=== PATIENT | male | born 1980 | race Caucasian/White ===

== ENCOUNTER → 2017-06-08 | Outpatient (CLI) | payer OTHER ==
[2017-06-08 08:00] LABS: MEAN CORPUSCULAR HEMOGLOBIN 32.9 pg (27.0-33.0); MEAN CORPUSCULAR HGB CONC 36.1 g/dl (32.0-36.5); MEAN CORPUSCULAR VOLUME 91.1 fl (80.0-96.0); RED CELL DISTRIBUTION WIDTH 12.7 % (11.5-14.5); WHITE BLOOD COUNT 6.9 K/mm3 (4.0-10.0)
--- NOTE | 2017-06-08 08:48 | REP ---
PA and lateral chest: There are no comparisons. The lung sagastume are clear. The cardiac size is normal The kate, mediastinum, and bony thorax are unremarkable. Impression: Negative PA and lateral chest. Signed by Ulices Ivan MD 06/08/2017 08:40 A
[2017-06-08 08:55] LABS: ALBUMIN/GLOBULIN RATIO 1.38 (1.00-1.93); ALKALINE PHOSPHATASE 56 U/L (45-117); ALT/SGPT 76 U/L (12-78); ANION GAP 5 MEQ/L (8-16); AST/SGOT 29 U/L (15-37); BILIRUBIN,TOTAL 0.7 MG/DL (0.2-1.0); BLOOD UREA NITROGEN 9 MG/DL (7-18); CALCIUM LEVEL 8.3 MG/DL (8.5-10.1); CARBON DIOXIDE LEVEL 31 MEQ/L (21-32); CHLORIDE LEVEL 105 MEQ/L (98-107); CHOLESTEROL LEVEL 200 MG/DL (<200); GLOMERULAR FILTRATION RATE > 60.0 (>60); GLUCOSE, FASTING 77 MG/DL (70-105); POTASSIUM SERUM 4.4 MEQ/L (3.5-5.1); SODIUM LEVEL 141 MEQ/L (136-145); TOTAL PROTEIN 6.9 GM/DL (6.4-8.2); TRIGLYCERIDES LEVEL 112 MG/DL (<150)
--- NOTE | 2017-06-08 09:01 | REP ---
RIGHT KNEE SERIES, FIVE VIEWS: There is no evidence of an acute fracture, dislocation or intrinsic bone disease. The joint spaces appear unremarkable. IMPRESSION: No fracture or dislocation. Further evaluation may be made with MR if clinically indicated. Signed by Ulices Ying MD 06/08/2017 09:42 A
--- NOTE | 2017-06-08 18:57 | ECGEPIP ---
Stationary ECG Study [facility] Test Date: 2017-06-08 Pat Name: EDGAR MANDEL Department: Room: - Gender: M Interlocking Pavement Installer: RODGER : 1980 Requested By: Milagros Burgess Order Number: [id number] Reading MD: Diomedes Garcia Measurements Intervals [place] Rate: 63 P: 1 MT: 131 QRS: -26 QRSD: 85 T: 15 QT: 389 QTc: 399 Interpretive Statements Normal sinus rhythm Borderline low limb lead QRS voltage Delayed anterior R-wave progression Nonspecific repolarization abnormalities Comparison tracing not available Electronically Signed On 06-08-2017 18:57:38 EDT by Diomedes Garcia
== END ==
LOC: M LAB 07:21
PROVIDERS: ATTEND Family Medicine
DX: I10 Essential (primary) hypertension (principal)

== ENCOUNTER → 2020-08-05 | Outpatient (REF) | payer OTHER ==
[2020-08-05 13:10] LABS: BASO # 0.1 10^3/uL (0.0-0.2); BASO % 0.7 % (0.0-1.0); EOS # 0.3 10^3/uL (0.0-0.5); EOS % 3.6 % (0.0-3.0); HEMATOCRIT 50.9 % (42.0-52.0); HEMOGLOBIN 16.4 g/dl (13.5-17.5); LYMPH # 2.8 10^3/uL (1.5-5.0); LYMPH % 37.4 % (24.0-44.0); MEAN CORPUSCULAR HEMOGLOBIN 30.5 pg (27.0-33.0); MEAN CORPUSCULAR HGB CONC 32.2 g/dl (32.0-36.5); MEAN CORPUSCULAR VOLUME 94.6 fl (80.0-96.0); MONO # 0.7 10^3/uL (0.0-0.8); MONO % 9.2 % (0.0-5.0); NEUTROPHILS # 3.6 10^3/uL (1.5-8.5); NEUTROPHILS % 48.6 % (36.0-66.0); PLATELET COUNT, AUTOMATED 196 10^3/uL (150-450); RED BLOOD COUNT 5.38 10^6/uL (4.30-6.10); WHITE BLOOD COUNT 7.5 10^3/uL (4.0-10.0)
[2020-08-05 13:42] LABS: ALBUMIN 4.1 GM/DL (3.2-5.2); ALT/SGPT 53 U/L (12-78); BILIRUBIN,TOTAL 0.6 MG/DL (0.2-1.0); BLOOD UREA NITROGEN 13 MG/DL (7-18); CALCIUM LEVEL 9.4 MG/DL (8.5-10.1); CARBON DIOXIDE LEVEL 30 MEQ/L (21-32); CHLORIDE LEVEL 105 MEQ/L (98-107); CHOLESTEROL LEVEL 213 MG/DL (<200); CHOLESTEROL RISK RATIO 5.071 (<5); CREATININE FOR GFR 1.04 MG/DL (0.70-1.30); GLOMERULAR FILTRATION RATE > 60.0 (>60); GLUCOSE, FASTING 84 MG/DL (70-100); HDL CHOLESTEROL 42 MG/DL (>40); LDL CHOLESTEROL 154 MG/DL (<100); NON-HDL-C 171 MG/DL; SODIUM LEVEL 140 MEQ/L (136-145); TOTAL PROTEIN 7.3 GM/DL (6.4-8.2); TRIGLYCERIDES LEVEL 83 MG/DL (<150)
== END ==
LOC: M SFHCADAM 08:25
PROVIDERS: ATTEND Family Medicine
DX: Z00.00 Encounter for general adult medical examination without abnormal findings (principal)

== ENCOUNTER → 2020-10-03 | Outpatient (CLI) | payer OTHER ==
[~2020-10-03] MED LIST: AZEL23SP NARES; CETI10CA2 PO; LISI-538 PO
== END ==
LOC: M LABSMTC 10:03
PROVIDERS: ATTEND Anesthesiology
DX: Z01.812 Encounter for preprocedural laboratory examination (principal); Z20.822 Contact with and (suspected) exposure to COVID-19

== ENCOUNTER 2020-10-08 07:04 | Day surgery (SDC) | payer OTHER ==
[~2020-10-08] VITALS: Ht 170.2 cm; Wt 133.5 kg
[~2020-10-08 07:04] MED LIST changes: -LISI-538 PO; +LISI20TA33 PO; +NS 1,000 ML IV ONE
--- OUTSIDE RECORDS SUMMARY | 2020-10-08 07:08 | CCD ---
Author Author [facility] Organization [facility] Address Unknown Phone Unavailable Care Team Providers Care Event Coordinator Marketing And Sales Name Role Phone Katelyn Wallace Unavailable PROBLEMS Type Condition ICD9-CM Code [id number] Code Onset Dates Condition S tatus SNOMED Code Notes Problem Essential hypertension I10 Active 10960654 Problem Mixed hyperlipidemia E78.2 Active 978257476 Problem Morbid (severe) obesity due to excess calories E66 .01 Active 51643302707743 Problem Body mass index [BMI] 45.0-49.9, adult Z68.42 A ctive 743344802 Problem Non-seasonal allergic rhinitis, unspecified trigger J30.89 Active 45022563 ALLERGIES No Known Allergies ENCOUNTERS from 1980 to 2020-09-11 Encounter Location Date Provider Diagnosis [address] [place] [address] 14 Aug, 20 Katelyn Anisha-Tartell Mixed hyperlipidemia E78.2 and Essential hypertension I10 IMMUNIZATIONS Vaccine Route Administration Date Status Influenza (Pharmacy Given) Unknown Aug 04, 2020 Admin istered SOCIAL HISTORY Tobacco Use: Social History Observation Description Date Details (start date - stop date) Former Smoker Sex Assigned At : Social History Observation Description Sex Assigned At Unknown Language: Question Answer Notes Languages spoken: Georgian Domestic Violence: Question Answer Notes Status: Alcohol Screening: Question Answer Notes Did you have a drink containing alcohol in the past year? Ye s Points 5 Interpretation Positive How often did you have six or more drinks on one occas ion in the past year? Monthly (2 points) How many drinks did you have on a typica l day when you were drinking in the past year? 5 or 6 (2 points) How often did you have a drink containing alcohol in t he past year? Monthly or less (1 point) BMI Care Goal Follow-Up Question Answer Notes Above Normal BMI Follow-Up Dietary management educatio n, guidance, and counseling Tobacco Use: Question Answer Notes Are you a: former smoker vapes How long has it been since you last smoked? 1-5 years REASON FOR REFERRAL No Information VITAL SIGNS No information MEDICATIONS Medication SIG (Take, Route, Frequency, Duration) Notes Start Da te End Date Status Dymista Nasal [place] azelastine hyrdochlo ride 137mcg & fluticasone propionate 50mcg( one spray per nostril nasallly once daily Active Zyrtec Allergy 10 MG 1 tablet Orally Once a day for 30 day(s) Active Lisinopril 20 MG 1 tablet Orally Once a day for 30 day(s) Active Azelastine HCl 0.15 % 2 sprays in each nostril Nasally Once a day for 30 day(s) Jul, Active PROCEDURES No Information RESULTS No Results REASON FOR VISIT 4 week MEDICAL (GENERAL) HISTORY Type Description Date Medical History essential hypertension Medical History allergic rhinitis Surgical History No know Surgical history Goals Section No Information Health Concerns No Information MEDICAL EQUIPMENT No Information MENTAL STATUS No Information FUNCTIONAL STATUS No Information ASSESSMENTS Encounter Date Diagnosis Assessment Notes Treatment Notes Treatm ent Clinical Notes Aug, Mixed hyperlipidemia (ICD-10 - E78.2) Discussed diet at [facility], will recheck in 6 months. Aug, Essential hypertension (ICD-10 - I10) Not sure what his BP has been doing at home, will recheck in office. PLAN OF TREATMENT Treatment Notes Assessment Notes Clinical Notes Mixed hyperlipidemia Discussed diet at [facility], will recheck in 6 months. Essential hypertension Not sure what his BP has been doing at home, will recheck in office. Future Test Test Name Order Date LIPID PANEL (CARDIAC RISK) [id number] Next Appt Details 2-3 months Reason:f/u Provider Name:Katelyn Wallace, 2020-12-01 08:00:00 AM, [address], [place], [address], Follow Up:2-3 monthsf/u Insurance Providers Payer Name Payer Address Payer Phone Insured Name Patient Relati onship to Insured Coverage Start Date Coverage End Date [facility] [address] [address] [facility] [phone] EDGAR MANDEL self
--- OUTSIDE RECORDS SUMMARY | 2020-10-08 07:08 | CCD ---
Author Author [facility] Organization [facility] Address Unknown Phone Unavailable Care Team Providers Care Photonics Engineering Technician Name Role Phone Nilesh Alcocer Unavailable Unavailable AlcocerNilesh maria PA Unavailable Unavailable AlcocerNilesh maria PA Unavailable Unavailable Nilesh Alcocer PA Unavailable Unavailable Nilesh Alcocer PA Unavailable Unavailable Nilesh Alcocer PA Unavailable Unavailable Nilesh Alcocer PA Unavailable Unavailable Nilesh Alcocer Unavailable Unavailable Nilseh Alcocer PA Unavailable Unavailable Nilesh Alcocer PA Unavailable Unavailable AlcocerNilesh maria PA Unavailable Unavailable AlcocerNilesh maria PA Unavailable Unavailable AlcocerNilesh maria PA Unavailable Unavailable AlcocerNilesh maria PA Unavailable Unavailable Nilesh Alcocer PA Unavailable Unavailable AlcocerNilesh maria PA Unavailable Unavailable AlcocerNilesh maria PA Unavailable Unavailable AlcocerNilesh maria PA Unavailable Unavailable AlcocerNilesh maria PA Unavailable Unavailable AlcocerNilesh maria PA Unavailable Unavailable AlcocerNilesh maria PA Unavailable Unavailable AlcocerNilesh maria PA Unavailable Unavailable AlcocerNilesh maria PA Unavailable Unavailable AlcocerNilesh maria PA Unavailable Unavailable AlcocerNilesh maria Nilesh Mustafa Unavailable Unavailable Re-disclosure Warning The records that you are about to access may contain information from federally-assisted alcohol or drug abuse programs. If such information is present, then the following federally mandated warning applies: This information has been disclosed to you from records protected by federal confidentiality rules (42 CFR part 2). The federal rules prohibit you from making any further disclosure of this information unless further disclosure is expressly permitted by the written consent of the person to whom it pertains or as otherwise permitted by 42 CFR part 2. A general authorization for the release of medical or other information is NOT sufficient for this purpose. The Federal rules restrict any use of the information to criminally investigate or prosecute any alcohol or drug abuse patient.The records that you are about to access may contain highly sensitive health information, the redisclosure of which is protected by Article 27-F of the [facility] Public Health law. If you continue you may have access to information: Regarding HIV / AIDS; Provided by facilities licensed or operated by the [facility] Office of Mental Health; or Provided by the [facility] Office for People With Developmental Disabilities. If such information is present, then the following [facility] mandated warning applies: This information has been disclosed to you from confidential records which are protected by state law. State law prohibits you from making any further disclosure of this information without the specific written consent of the person to whom it pertains, or as otherwise permitted by law. Any unauthorized further disclosure in violation of state law may result in a fine or custodial sentence or both. A general authorization for the release of medical or other information is NOT sufficient authorization for further disc losure. Encounters Encounter Providers Location Date Indications Data Source(s ) TeleMedicine Est. Pt. Level 3 [address] [place] [address] 09/01/2020 12:00:00 AM EST eCW1 (Pending sale to [facility]) Outpatient [address] [facility] [address] 08/04/2020 12:00:00 AM EST eCW1 ([facility]) Outpatient Attender: Luis Antonio Alves [facility] 08/23/2019 09:45:00 AM EST MEDENT ([facility], [facility]) Immunizations Vaccine Date Status Description Data Source(s) IIV3. This is one of two codes replacing CVX 15, which is being retired. 08/04/2020 10:48:00 AM EST completed eCW1 ([facility]) IIV3. This is one of two codes replacing CVX 15, which is being retired. 08/04/2020 10:48:00 AM EST completed eCW1 ([facility]) Medications Medication Brand Name Start Date Product Form Dose Route Admi nistrative Instructions Pharmacy Instructions Status Indications Reaction Description Data Source(s) Azelastine HCl 0.15 % Azelastine HCl 0.15 % 08/04/2020 12:00:00 AM EST 2.0 {sprays_in_each_nostril} active Azelast ine HCl 0.15 % eCW1 ([facility]) Azelastine HCl 0.15 % Azelastine HCl 0.15 % 08/04/2020 12:00:00 AM EST 2.0 {sprays_in_each_nostril} active Azelast ine HCl 0.15 % eCW1 ([facility]) Lisinopril 20 MG Oral Tablet Lisinopril 08/23/2019 12:00:00 AM EST ORAL active MEDENT ([facility], [facility]) cefdinir 300 MG Oral Capsule Cefdinir 08/23/2019 12:00:00 AM EST ORAL active MEDENT ([facility], [facility]) Dymista Dymista 08/23/2019 12:00:00 AM EST active MEDENT ([facility], [facility]) Insurance Providers Payer name Policy type / Coverage type Policy ID Covered constitution party ID Covered constitution party's relationship to guerra Policy Guerra Plan Information [facility] [id number] SP [id number] [facility] [id number] SP [id number] [employer] [id number] SP [id number] [employer]-O/P [id number] 18 [id number] [facility] [id number] Problems, Conditions, and Diagnoses Code Display Name Description Problem Type Effective Dates Data Source(s) E78.2 [id number] Mixed hyperlipidemia Problem 09/01/2020 12:0 0:00 AM EST eCW1 ([facility]) 64482457 Essential hypertension Essential hypertension Problem 09/01/2020 12:00:00 AM EST MEDENT ([facility], ) J30.89 15577090 Non-seasonal allergic rhinitis, unspecifi ed trigger Problem 08/04/2020 12:00:00 AM EST eCW1 ([facility]) Z68.42 459478559 Body mass index [BMI] 45.0-49.9, adult Pr oblem 08/04/2020 12:00:00 AM EST eCW1 ([facility]) E66.01 [id number] Morbid (severe) obesity due to excess c alories Problem 08/04/2020 12:00:00 AM EST eCW1 ([facility]) I10 33532873 Essential hypertension Problem 08/04/2020 12 :00:00 AM EST eCW1 ([facility]) Results ID Date Data Source [id number] 10/03/2020 10:00:00 AM EST [facility] Name Value Range Interpretation Code Description Data Kelly rce(s) Supporting Document(s) SARS coronavirus 2 RNA Not Detected [facility] [place] This lab was ordered by [facility] and reported by [facility]. Procedure Social History Code Duration Value Status Description Data Source(s ) Smoking 08/04/2020 12:00:00 AM EST Former Smoker completed Former Smoker eCW1 ([facility]) Smoking 08/04/2020 12:00:00 AM EST Former Smoker completed Former Smoker [facility] ([facility]) Vital Signs ID Date Data Source UNK Name Value Range Interpretation Code Description Data Source(s) Body surface area Derived from formula 2.42 m2 2.42 m2 MEDENT ([facility], ) Body weight 134.946 kg 134.946 kg MEDENT ([facility], ) [place] body weight 154 [lb_av] 154 [lb_av] MEDEN T ([facility]) Body mass index (BMI) [Ratio] 45.2 kg/m2 45.2 k g/m2 [facility] Body weight 297.50 [lb_av] 297.50 [lb_av] MEDEN T ([facility], ) Body height 68 [in_i] 68 [in_i] MEDENT ([facility], ) 5'8" Diastolic blood pressure 78 mm[Hg] 78 mm[Hg] MEDENT ([facility], ) Systolic blood pressure 138 mm[Hg] 138 mm[Hg] M EDENT ([facility], ) Diastolic blood pressure 78 mm[Hg] 78 mm[Hg] eCW1 ([facility]) Systolic blood pressure 140 mm[Hg] 140 mm[Hg] e CW1 ([facility]) Body temperature 96.6 [degF] 96.6 [degF] eCW1 ( [facility]) Respiratory rate 18 /min 18 /min eCW1 ([facility]) Heart rate 73 /min 73 /min eCW1 ([facility]) Body mass index (BMI) [Ratio] 45.76 kg/m2 45.76 kg/m2 eCW1 ([facility]) Body height [in_i] eCW1 ([facility]) Body weight 296.6 [lb_av] 296.6 [lb_av] eCW1 ([facility]) Body mass index (BMI) [Ratio] 44.1 kg/m2 44.1 k g/m2 MEDENT ([facility], [facility]) Body height 68 [in_i] 68 [in_i] MEDENT ([facility] 5'8" Body weight 290.00 [lb_av] 290.00 [lb_av] MEDEN T ([facility], [facility]) Body temperature 99.0 [degF] 99.0 [degF] MEDENT ([facility], [facility]) Oxygen saturation in Arterial blood by Pulse oximetry 98 % 98 % [facility] ([facility], [facility]) Respiratory rate 14 /min 14 /min [facility] ( [facility], [facility]) Heart rate 88 /min 88 /min MEDENT ([facility], [facility]) Diastolic blood pressure 108 mm[Hg] 108 mm[Hg] MEDENT ([facility], [facility]) Systolic blood pressure 156 mm[Hg] 156 mm[Hg] M NICKY ([facility], [facility]) Patient Treatment Plan of Care Planned Activity Planned Date Details Description Data Source (s) Azelastine HCl 0.15 % 08/04/2020 12:00:00 AM EST eCW1 ([facility])
--- OUTSIDE RECORDS SUMMARY | 2020-10-08 07:08 | CCD ---
Author Author [facility] Address Unknown Phone Unavailable Care Team Providers Care Hydroelectric Component Machinist Name Role Phone Anisha-Adrien Katelyn Unavailable PROBLEMS Type Condition ICD9-CM Code MEX96-HY Code Onset Dates Condition S tatus SNOMED Code Notes Problem Essential hypertension I10 Active 60561622 Problem Morbid (severe) obesity due to excess calories E66 .01 Active 59492562785556 Problem Body mass index [BMI] 45.0-49.9, adult Z68.42 A ctive 291956792 Problem Non-seasonal allergic rhinitis, unspecified trigger J30.89 Active 89354944 ALLERGIES No Known Allergies ENCOUNTERS from 1980 to 2020-08-17 Encounter Location Date Provider Diagnosis [id number] [place] [address] Jul, Katelyn Wallace Annual physical exam Z00.00 ; Essential hypertension I10 ; Snoring R06.83 ; Non-seasonal allergic rhinitis, unspecified trigger J30.89 ; Rectal bleeding K62.5 ; Morbid (severe) obesity due to excess calories E66.01 and Body mass index [BMI] 45.0-49.9, adult Z68.42 IMMUNIZATIONS Vaccine Route Administration Date Status Influenza (Pharmacy Given) Unknown Aug 04, 2020 Admin istered SOCIAL HISTORY Tobacco Use: Social History Observation Description Date Details (start date - stop date) Former Smoker Sex Assigned At : Social History Observation Description Sex Assigned At Unknown Language: Question Answer Notes Languages spoken: Malagasy Domestic Violence: Question Answer Notes Status: Alcohol [...] REASON FOR REFERRAL No Information VITAL SIGNS Weight 296.6 lbs Jul, Height 5'7 1/2" in Jul, BMI 45.76 kg/m2 Jul, Heart Rate 73 /min Jul, Respiratory Rate 18 /min Jul, Temperature 96.6 degrees Fahrenheit Jul, Oximetry 97 Jul, Blood pressure systolic 140 mm Hg Jul, Blood pressure diastolic 78 mm Hg Jul, MEDICATIONS Medication SIG (Take, Route, Frequency, Duration) Notes Start Da te End Date Status Zyrtec Allergy 10 MG 1 tablet Orally Once a day for 30 day(s) Active Dymista Nasal [place] azelastine hyrdochlo ride 137mcg & fluticasone propionate 50mcg( one spray per nostril nasallly once daily Active Lisinopril 20 MG 1 tablet Orally Once a day for 30 day(s) Active Azelastine HCl 0.15 % 2 sprays in each nostril Nasally Once a day for 30 day(s) Jul, Active PROCEDURES No Information RESULTS No Results REASON FOR VISIT fnps MEDICAL (GENERAL) HISTORY Type Description Date Medical History essential hypertension Medical History allergic rhinitis Surgical History No know Surgical history Goals Section No Information Health Concerns No Information MEDICAL EQUIPMENT No Information MENTAL STATUS No Information FUNCTIONAL STATUS No Information ASSESSMENTS Encounter Date Diagnosis Assessment Notes Treatment Notes Treatm ent Clinical Notes Jul, Annual physical exam (ICD-10 - Z00.00) Patient seen and examined. Past medical, surgical, family, social history reviewed. Discussed preventive medicine, including immunizations. Appropriate labwork was ordered. Jul, Essential hypertension (ICD-10 - I10) Labwork ordered, will check electrolytes. Jul, Snoring (ICD-10 - R06.83) Referred to pulmonology for evaluation of possible GEORGE. Jul, Non-seasonal allergic rhinit is, unspecified trigger (ICD-10 - J30.89) Jul, Rectal bleeding (ICD-10 - K62.5) He has trouble relaxing for an exam, but I do think he has hemorrhoids. However, he complained of R sided abdominal discomfort at times. Referred to surgery for consideration of colonoscopy. Jul, Morbid (severe) obesity due to excess calories ( ICD-10 - E66.01) Jul, Body mass index [BMI] 45.0-49.9, adult (ICD-10 - Z68.42) Jul, Other Will reconsider tetanus shot next visit. PLAN OF TREATMENT Medication Medication Name Sig Start Date Stop Date Azelastine HCl 0.15 % 2 sprays in each nostril Nasally Once a day for 30 day(s) Jul, Treatment Notes Assessment Notes Clinical Notes Annual physical exam Patient seen and ex amined. Past medical, surgical, family, social history reviewed. Discussed preventive medicine, including immunizations. Appropriate labwork was ordered. Essential hypertension Labwork ordered, will check electrolytes. Snoring Referred to pulmonol keagan for evaluation of possible GEORGE. Rectal bleeding He has trouble relax ing for an exam, but I do think he has hemorrhoids. However, he complained of R sided abdominal discomfort at times. Referred to surgery for consideration of colonoscopy. Next Appt Details 4 Weeks Reason:f/u Provider Name:Katelyn Wallace, 2020-09-01 09:30:00 AM, [address], [place], [address], Follow Up:4 Weeksf/u Insurance Providers Payer Name Payer Address Payer Phone Insured Name Patient Relati onship to Insured Coverage Start Date Coverage End Date [facility] [address] [address] [facility] [id number] EDGAR MANDEL self
--- OUTSIDE RECORDS SUMMARY | 2020-10-08 07:08 | CCD | Continuity of Care Document ---
Author Author [facility] Organization Unknown Address [address], [address] [place] [address] Phone [phone] Care Team Providers Care Tinsmith Apprentice Name Role Phone Katelyn Wallace D.O. AUTM Problems Active Problems Provider Date Essential hypertension Saravanan Jiang NP Onset: 09/01/2020 Social History Type Date Description Comments Sex Unknown ETOH Use 1 A Day Tobacco Use Start: Unknown End: Unknown Patient is a former smoker 1 ppd x 15 years quit in 2016 Allergies, Adverse Reactions, Alerts Description No Known Drug Allergies Medications Active Medications SIG Qnty Indications Ordering Provide r Date Lisinopril 20mg Tablets 1 tahira ry day Unknown Azelastine Hydrochloride/Fluticasone Pro pionate 137- 50mcg/Act Suspension [place] One [place] In Each Nostril Twice A Day Unknown Cetirizine HCL 10mg Tablets 1 every day 90tabs Unknown Immunizations Description No Information Available Vital Signs Date Vital Result Comment 09/01/2020 2:10pm BP Systolic 138 mmHg BP Diastolic 78 mmHg Height 68 inches 5'8" Weight 297.50 lb BMI (Body Mass Index) 45.2 kg/m2 [place] Body Weight 154 lb Weight 134.946 kg BSA (Body Surface Area) 2.42 m2 Results Description No Information Available Procedures Description No Information Available Medical Devices Description No Information Available Encounters Description No Information Available Assessments Description No Information Available Plan of Treatment No Information Available Functional Status Description No Information Available Mental Status Description No Information Available Referrals Refer to Reason for Referral Status Appt Date Ulices Bahena D.O. RECTAL BLEEDING Scheduled [address] [place] [address] [place] [address] [phone]
[2020-10-08] MEDS ORDERED: propofoL 200 MG/20 ML VIAL As Ordered ONE ×2 (08:16→08:17)
[2020-10-08] MEDS ORDERED: LIDOCAINE 2% 100MG/5ML SDV (FOR ANES.) As Ordered ONE (08:16)
--- NOTE | 2020-10-08 08:21 | ROOR ---
Patient Name: Cirilo Dhaliwal Procedure Date: 10/08/2020 7:57 AM Date of : 1980 Age: 40 Room: [facility] Gender: Male Note Status: Finalized Procedure: Colonoscopy Indications: Hematochezia Providers: Ulices Bahena DO Referring MD: Katelyn WIN DO Requesting Provider: Medicines: Propofol per Anesthesia Complications: No immediate complications. Procedure: Pre-Anesthesia Assessment: - Prior to the procedure, a History and Physical was performed, and patient medications and allergies were reviewed. The patient is competent. The risks and benefits of the procedure and the sedation options and risks were discussed with the patient. All questions were answered and informed consent was obtained. Patient identification and proposed procedure were verified by the physician, the nurse, the anesthesiologist and the computer hardware technician in the endoscopy suite. Mental Status Examination: alert and oriented. Airway Examination: normal oropharyngeal airway and neck mobility. Respiratory Examination: clear to auscultation. CV Examination: normal. Prophylactic Antibiotics: The patient does not require prophylactic antibiotics. Prior Anticoagulants: The patient has taken no previous anticoagulant or antiplatelet agents. ASA Grade Assessment: II - A patient with mild systemic disease. After reviewing the risks and benefits, the patient was deemed in satisfactory condition to undergo the procedure. The anesthesia plan was to use monitored anesthesia care (MAC). Immediately prior to administration of medications, the patient was re-assessed for adequacy to receive sedatives. The heart rate, respiratory rate, oxygen saturations, blood pressure, adequacy of pulmonary ventilation, and response to care were monitored throughout the procedure. The physical status of the patient was re-assessed after the procedure. The Colonoscope was introduced through the anus and advanced to the cecum, identified by appendiceal orifice and ileocecal valve. The colonoscopy was performed without difficulty. The patient tolerated the procedure well. Findings: Non-bleeding internal hemorrhoids were found during retroflexion. The hemorrhoids were Grade II (internal hemorrhoids that prolapse but reduce spontaneously). A less than 5 mm polyp was found in the rectum. The polyp was hyperplastic. The polyp was removed with a jumbo cold forceps. Resection and retrieval were complete. Estimated blood loss was minimal. Impression: - Non-bleeding internal hemorrhoids. - One less than 5 mm polyp in the rectum, removed with a jumbo cold forceps. Resected and retrieved. Recommendation: - Patient has a contact number available for emergencies. The signs and symptoms of potential delayed complications were discussed with the patient. Return to normal activities tomorrow. Written discharge instructions were provided to the patient. - Await pathology results. - Repeat colonoscopy in 5-10 years for surveillance based on pathology results. - Telephone my office for pathology results in 1 week. Procedure Code(s): --- Professional --- 51118, Colonoscopy, flexible; with biopsy, single or multiple Diagnosis Code(s): --- Professional --- K64.1, Second degree hemorrhoids K62.1, Rectal polyp K92.1, Melena (includes Hematochezia) CPT copyright 2019 [employer]. All rights reserved. The codes documented in this report are preliminary and upon family law paralegal review may be revised to meet current compliance requirements. Ulices Bahena DO 10/08/2020 8:20:59 AM Electronically signed by Ulices Bahena DO Number of Addenda: 0 Note Initiated On: 10/08/2020 7:57 AM Estimated Blood Loss: Estimated blood loss was minimal.
[2020-10-08 08:45] VITALS: BP 107/56
== END 2020-10-08 08:55 | disposition home or self-care (01) ==
LOC: M OPP 07:04
PROVIDERS: ATTEND Surgery
DX: K92.1 Melena (principal); K63.5 Polyp of colon; K64.1 Second degree hemorrhoids; E78.5 Hyperlipidemia, unspecified; I10 Essential (primary) hypertension; F17.290 Nicotine dependence, other tobacco product, uncomplicated; Z79.899 Other long term (current) drug therapy

== ENCOUNTER → 2020-11-20 | Outpatient (CLI) | payer OTHER ==
[~2020-11-20] MED LIST changes: -NS 1,000 ML IV ONE
--- NOTE | 2020-11-24 13:56 | SLEEPCENT ---
NOCTURNAL POLYSOMNOGRAPHY DATE: 11/20/2020 ORDERED BY: DUANE Beebe Nocturnal polysomnography was performed for evaluation of sleep physiology in this patient with a history of snoring and nonrestorative sleep. 7 hours and 25 minutes of data were reviewed. There were 276 minutes of sleep identified. Sleep latency was prolonged at 117 minutes. REM latency was prolonged at 189 minutes. Sleep architecture showed poor progression. There was one REM cycle noted. Overall sleep efficiency was 62.7%. The electrocardiogram showed a sinus rhythm with an average heart rate of 68 beats per minute. EEG showed normal waveforms for wake and sleep. There were 501 respiratory events identified of 10 seconds in duration or greater for an apnea-hypopnea index of 108.9. The events were obstructive, not exclusive to sleep stage nor body posture. Arousals from respiratory events occurred 49.8 times per hour, and oxygen desaturations were seen into the low 80s. There was some activity in the limb EMG leads, but arousals from limb events were few at 0.2 per hour. IMPRESSION: Severe obstructive sleep apnea syndrome (G47.33), apnea-hypopnea index 108.9. RECOMMENDATION: The patient should be encouraged to return to [facility]. In the interim, alcohol and sedative avoidance should be practiced and caution exercised during the operation of motor vehicles.
== END ==
LOC: M SLEEP 20:00
PROVIDERS: ATTEND Nurse Practitioner Family
DX: R06.83 Snoring (principal)

== ENCOUNTER → 2020-12-17 | Outpatient (CLI) | payer OTHER ==
--- NOTE | 2020-12-18 14:53 | SLEEPCENT ---
DATE: 12/17/2020 ORDERED BY: Emily Bhandari Nocturnal polysomnography was performed for the titration of pressure therapy in this patient with obstructive sleep apnea syndrome, apnea-hypopnea index 108.9. For testing, a [employer] Quattro Mirage full-face mask of medium size was used. There was 4 cm of water pressure applied to the circuit, and the lights were extinguished. There was 7 hours and 23 minutes of data reviewed. There was 258.5 minutes of sleep identified. Sleep latency was prolonged at 162.5 minutes. REM latency was short at 49 minutes. Sleep architecture once established was good. There were three REM cycles. Overall sleep efficiency was 59.2%. The electrocardiogram showed a sinus rhythm with an average heart rate of 64 beats per minute. EEG showed normal waveforms for wake and sleep. Respiratory events were best palliated with CPAP at a pressure of 16, and remaining measures of sleep physiology were normal. IMPRESSION: Obstructive sleep apnea syndrome (G47.33). RECOMMENDATION: Nightly use of pressure therapy, 16 cm of water.
== END ==
LOC: M SLEEP 20:00
PROVIDERS: ATTEND Nurse Practitioner Family
DX: G47.33 Obstructive sleep apnea (adult) (pediatric) (principal)

== ENCOUNTER → 2023-08-02 | Outpatient (REF) | payer OTHER ==
[2023-08-02 14:36] LABS: BASO # 0.1 10^3/uL (0.0-0.2); BASO % 0.9 % (0.0-1.0); EOS # 0.4 10^3/uL (0.0-0.5); EOS % 5.2 % (0.0-3.0); HEMATOCRIT 48.7 % (42.0-52.0); HEMOGLOBIN 15.7 g/dl (13.5-17.5); LYMPH # 2.3 10^3/uL (1.5-5.0); LYMPH % 34.2 % (24.0-44.0); MEAN CORPUSCULAR HEMOGLOBIN 30.3 pg (27.0-33.0); MEAN CORPUSCULAR HGB CONC 32.2 g/dl (32.0-36.5); MEAN CORPUSCULAR VOLUME 93.8 fl (80.0-96.0); MONO # 0.9 10^3/uL (0.0-0.8); MONO % 12.5 % (2.0-8.0); NEUTROPHILS # 3.2 10^3/uL (1.5-8.5); NEUTROPHILS % 46.6 % (36.0-66.0); PLATELET COUNT, AUTOMATED 169 10^3/uL (150-450); RED BLOOD COUNT 5.19 10^6/uL (4.30-6.10); WHITE BLOOD COUNT 6.8 10^3/uL (4.0-10.0)
[2023-08-02 14:41] LABS: ALBUMIN 3.8 G/DL (3.2-5.2); ALKALINE PHOSPHATASE 48 U/L (46-116); ALT/SGPT 57 U/L (7.0-40); AST/SGOT 25 U/L (<34); BILIRUBIN,TOTAL 0.6 MG/DL (0.3-1.2); BLOOD UREA NITROGEN 10 MG/DL (9-23); CALCIUM LEVEL 9.1 MG/DL (8.5-10.1); CARBON DIOXIDE LEVEL 29 MMOL/L (20-31); CHLORIDE LEVEL 105 MMOL/L (98-107); CHOLESTEROL LEVEL 215 MG/DL (<200); CHOLESTEROL RISK RATIO 5.49 (<5); CREATININE FOR GFR 0.86 MG/DL (0.70-1.30); GLOMERULAR FILTRATION RATE > 60.0 (>60); GLUCOSE, FASTING 88 MG/DL (60-100); HDL CHOLESTEROL 39.1 MG/DL (>40); LDL CHOLESTEROL 147.7 MG/DL (<100); NON-HDL-C 175.9 MG/DL; POTASSIUM SERUM 4.8 MMOL/L (3.5-5.1); SODIUM LEVEL 139 MMOL/L (136-145); THYROID STIMULATING HORMONE 1.643 uIU/ML (0.55-4.78); TOTAL PROTEIN 6.5 G/DL (5.7-8.2); TRIGLYCERIDES LEVEL 141 MG/DL (<150)
[2023-08-02 17:23] LABS: HIV 1&2 SCREEN NEGATIVE (NEGATIVE)
== END ==
LOC: M SFHCADAM 08:11
PROVIDERS: ATTEND Family Medicine
DX: Z00.00 Encounter for general adult medical examination without abnormal findings (principal)

== ENCOUNTER → 2023-08-19 | Outpatient (CLI) | payer OTHER | LOC: M RAD 07:46 | PROVIDERS: ATTEND Family Medicine | DX: R74.01 Elevation of levels of liver transaminase levels (principal) ==

== ENCOUNTER 2023-08-26 05:49 | Emergency (ER) | payer OTHER ==
[~2023-08-26] VITALS: Ht 170.2 cm; Wt 136.3 kg
[2023-08-26] MEDS ORDERED: ONDANSETRON 4MG 2ML VIAL IV ONE (06:45)
[2023-08-26] MEDS ORDERED: KETOROLAC 30 MG/ML 1ML VIAL IV ONE (06:45)
[2023-08-26 07:23] LABS: BASO # 0.1 10^3/uL (0.0-0.2); BASO % 0.6 % (0.0-1.0); EOS # 0.1 10^3/uL (0.0-0.5); EOS % 0.7 % (0.0-3.0); HEMATOCRIT 49.3 % (42.0-52.0); HEMOGLOBIN 16.8 g/dl (13.5-17.5); LYMPH # 1.2 10^3/uL (1.5-5.0); LYMPH % 14.2 % (24.0-44.0); MEAN CORPUSCULAR HEMOGLOBIN 30.9 pg (27.0-33.0); MEAN CORPUSCULAR HGB CONC 34.1 g/dl (32.0-36.5); MEAN CORPUSCULAR VOLUME 90.8 fl (80.0-96.0); MONO # 0.5 10^3/uL (0.0-0.8); MONO % 5.4 % (2.0-8.0); NEUTROPHILS # 6.7 10^3/uL (1.5-8.5); NEUTROPHILS % 78.6 % (36.0-66.0); PLATELET COUNT, AUTOMATED 196 10^3/uL (150-450); RED BLOOD COUNT 5.43 10^6/uL (4.30-6.10); WHITE BLOOD COUNT 8.5 10^3/uL (4.0-10.0)
[2023-08-26] MEDS ORDERED: OMEP10CASR PO (07:33)
[2023-08-26 07:54] LABS: CK-MB VALUE MASS 4.6 NG/ML (<3.6)
[2023-08-26 07:56] LABS: ALBUMIN 4.6 G/DL (3.2-5.2); BILIRUBIN,DIRECT 0.2 MG/DL (<0.4); BILIRUBIN,TOTAL 0.6 MG/DL (0.3-1.2); MB/CK RELATIVE INDEX 0.87 (< OR =4); TOTAL PROTEIN 7.6 G/DL (5.7-8.2)
[2023-08-26] MEDS ORDERED: cefTRIAXone SOD 1 GM in D5W MINI-BAG PLUS 50 ML IV ONE (09:25)
[2023-08-26] MEDS ORDERED: AMOX875T2 PO (09:35)
[2023-08-26 10:25] VITALS: BP 143/95; TEMP 97.5; O2SAT 97
== END 2023-08-26 11:29 | disposition home or self-care (01) ==
LOC: M ED 05:49
DX: K81.9 Cholecystitis, unspecified (principal); K76.0 Fatty (change of) liver, not elsewhere classified; I44.4 Left anterior fascicular block; I10 Essential (primary) hypertension; E78.5 Hyperlipidemia, unspecified; Z79.2 Long term (current) use of antibiotics; Z79.811 Long term (current) use of aromatase inhibitors; Z79.83 Long term (current) use of bisphosphonates; Z79.899 Other long term (current) drug therapy
CPT/HCPCS: 76705; 80047; 80076; 81001; 82550; 82553; 83690; 84484; 85025; 93005; 96374; 96375; 99284; J0696; J1885; J2405

== ENCOUNTER 2023-11-18 07:38 | Day surgery (SDC) | payer OTHER ==
[~2023-11-18] VITALS: Ht 170.2 cm; Wt 131.5 kg
[~2023-11-18 07:38] MED LIST changes: +AMOX875T2 PO; +OMEP10CASR PO; +UNRESOLVED CLARIFICATION ENTRY XX SCH; +ceFAZolin SOD 2 GM in IV 1 EA IV ONE
[2023-11-18] MEDS ORDERED: ROCURONIUM BROMIDE 50MG/5ML VIAL As Ordered ONE (07:46)
[2023-11-18] MEDS ORDERED: ONDANSETRON 4MG 2ML VIAL As Ordered ONE (07:46)
[2023-11-18] MEDS ORDERED: LIDOCAINE 2% 100MG/5ML SDV (FOR ANES.) As Ordered ONE (07:46)
[2023-11-18] MEDS ORDERED: KETOROLAC 60MG 2ML VIAL As Ordered ONE (07:46)
[2023-11-18] MEDS ORDERED: SUGAMMADEX SODIUM 500 MG/5 ML VIAL (BRIDION) As Ordered ONE (07:46)
[2023-11-18] MEDS ORDERED: propofoL 200 MG/20 ML VIAL As Ordered ONE (07:46)
[2023-11-18] MEDS ORDERED: fentaNYL 250 MCG/5 ML INJECTION As Ordered ONE (07:54)
[2023-11-18] MEDS ORDERED: MIDAZOLAM INJ 2MG/2ML VIAL As Ordered ONE (07:54)
[2023-11-18] MEDS ORDERED: LR 1,000 ML IV SCH ×2 (08:25→09:55)
[2023-11-18] MEDS ORDERED: GLUCAGON INJ 1MG VIAL As Ordered ONE (08:58)
[2023-11-18] MEDS: ceFAZolin SOD 2 GM in IV 1 EA IV ONE (09:08)
[2023-11-18] MEDS: ceFAZolin SOD 1 GM in D5W MINI-BAG PLUS 50 ML IV ONE (09:08)
[2023-11-18] MEDS ORDERED: ACETAMINOPHEN 1000MG 100ML IV BAG As Ordered ONE (09:15)
[2023-11-18] MEDS ORDERED: ONDANSETRON 4MG 2ML VIAL IV PRN (09:55)
[2023-11-18] MEDS ORDERED: oxyCODONE 5MG TAB PO PRN (09:55)
[2023-11-18] MEDS ORDERED: HYDROMORPHONE HCL 0.5 MG/ 0.5 ML SYRINGE IV PRN (09:55)
[2023-11-18] MEDS ORDERED: fentaNYL 100 MCG/2 ML INJECTION IV PRN (09:55)
[2023-11-18 11:01] VITALS: BP 141/93; TEMP 97.1; O2SAT 95
[2023-11-18] MEDS ORDERED: NS 1,000 ML IV SCH (11:15)
[2023-11-18] MEDS ORDERED: traMADol 50 MG TAB PO PRN (11:20)
== END 2023-11-18 11:32 | disposition home or self-care (01) ==
LOC: M SDC 07:38
PROVIDERS: ATTEND Surgery
DX: K80.10 Calculus of gallbladder with chronic cholecystitis without obstruction (principal); I10 Essential (primary) hypertension; K21.9 Gastro-esophageal reflux disease without esophagitis; Z87.891 Personal history of nicotine dependence; G47.33 Obstructive sleep apnea (adult) (pediatric); Z79.899 Other long term (current) drug therapy
CPT/HCPCS: 47562; 88304; J0131; J0665; J0690; J1100; J1885; J2250; J2405; J3010

== ENCOUNTER → 2025-07-23 | Outpatient (REF) | payer OTHER ==
[~2025-07-23] MED LIST changes: -UNRESOLVED CLARIFICATION ENTRY XX SCH; -ceFAZolin SOD 2 GM in IV 1 EA IV ONE
[2025-07-23 13:38] LABS: ALT/SGPT 55 U/L (7.0-40); AST/SGOT 33 U/L (<34); CALCIUM LEVEL 9.4 MG/DL (8.5-10.1); CARBON DIOXIDE LEVEL 29 MMOL/L (20-31); CHLORIDE LEVEL 102 MMOL/L (98-107); CHOLESTEROL LEVEL 212 MG/DL (<200); CHOLESTEROL RISK RATIO 5.42 (<5); CREATININE FOR GFR 0.99 MG/DL (0.70-1.30); GLOMERULAR FILTRATION RATE > 90.0 (>60); LDL CHOLESTEROL 144.9 MG/DL (<100); NON-HDL-C 172.9 MG/DL; POTASSIUM SERUM 4.4 MMOL/L (3.5-5.1); SODIUM LEVEL 142 MMOL/L (136-145); TRIGLYCERIDES LEVEL 140 MG/DL (<150)
[2025-07-23 13:46] LABS: BASO # 0.1 10^3/uL (0.0-0.2); BASO % 1.0 % (0.0-1.0); EOS # 0.4 10^3/uL (0.0-0.5); EOS % 4.8 % (0.0-3.0); LYMPH # 2.9 10^3/uL (1.5-5.0); LYMPH % 35.9 % (24.0-44.0); MONO # 0.8 10^3/uL (0.0-0.8); MONO % 10.0 % (2.0-8.0); NEUTROPHILS # 3.9 10^3/uL (1.5-8.5); NEUTROPHILS % 47.6 % (36.0-66.0); PLATELET COUNT, AUTOMATED 185 10^3/uL (150-450)
== END ==
LOC: M SFHCADAM 07:38
PROVIDERS: ATTEND Family Medicine
DX: Z00.00 Encounter for general adult medical examination without abnormal findings (principal)